=== PATIENT | male | born 1940 | race Caucasian/White ===

== ENCOUNTER → 2017-06-24 | Outpatient (CLI) | payer MEDICARE, OTHER ==
[~2017-06-24] MED LIST: CIPRO 500MG TA500 MG PO; NORCO 325 MG-51 TAB PO; ZESTRIL 20MG TA20 MG PO
== END ==
LOC: COL.VAS 10:13
DX: I37.1 Nonrheumatic pulmonary valve insufficiency (principal); G47.33 Obstructive sleep apnea (adult) (pediatric); I10 Essential (primary) hypertension; Z68.39 Body mass index [BMI] 39.0-39.9, adult